=== PATIENT | female | born 1960 | race Caucasian/White ===

== ENCOUNTER → 2024-01-30 13:36 | Outpatient (REF) | payer BC, SELFPAY | LOC: RCS 13:36 | PROVIDERS: ATTENDING PHYSICIAN Nurse Practitioner | DX: R00.2 Palpitations (principal) | CPT/HCPCS: 93017; 93306 ==

== ENCOUNTER → 2024-02-25 08:25 | Outpatient (REF) | payer BC, SELFPAY | LOC: RCS 08:25 | PROVIDERS: ATTENDING PHYSICIAN Internal Medicine; FAMILY PHYSICIAN Nurse Practitioner | DX: R00.2 Palpitations (principal) | CPT/HCPCS: 93225; 93226 ==

== ENCOUNTER → 2024-05-01 10:36 | Outpatient (REF) | payer BC, SELFPAY | LOC: HWWDC 10:36 | PROVIDERS: ATTENDING PHYSICIAN Nurse Practitioner | DX: Z12.31 Encounter for screening mammogram for malignant neoplasm of breast (principal) | CPT/HCPCS: 77063; 77067 ==

== ENCOUNTER → 2024-10-16 10:53 | Outpatient (REF) | payer BC, SELFPAY | LOC: HWRAD 10:53 | PROVIDERS: ATTENDING PHYSICIAN Family Medicine | DX: M54.6 Pain in thoracic spine (principal) | CPT/HCPCS: 71046; 72072 ==

== ENCOUNTER 2025-05-05 13:28 | Emergency (ER) | payer BC, SELFPAY ==
[2025-05-05 13:32] VITALS: BP 147/79
[2025-05-05 14:03] LABS: Hematocrit 40.1 % (37.0-47.0); Hemoglobin 13.2 g/dL (12.0-16.0); Mean Corp Hgb Conc. 32.9 g/dL (33.0-37.0); Mean Corpuscular Volume 88.3 fL (81.0-99.0); Nucleated Red Blood Cells % 0 %; Platelet Count 263 10^3/uL (130-400); Red Cell Dist. Width 12.9 % (11.5-14.5)
[2025-05-05 14:09] LABS: ALT (SGPT) 20 U/L (0-35); AST (SGOT) 21 U/L (14-36); Albumin 4.6 g/dl (3.5-5.0); Alkaline Phosphatase 124 U/L (38-126); Blood Urea Nitrogen 14 mg/dl (7-17); Calcium 8.9 mg/dl (8.4-10.2); Carbon Dioxide 27 mmol/L (22-30); Chloride 108 mmol/L (98-107); Glucose 96 mg/dl (70-99); Lipase 119 U/L (23-300); Potassium 4.0 mmol/L (3.5-5.1); Sodium 140 mmol/L (135-145); Total Protein 7.0 g/dl (6.3-8.2); eGFR > 60.00
[2025-05-05 14:20] LABS: Troponin I < 0.012 ng/ml
--- NOTE | 2025-05-05 15:42 | ED.GENMED ---
History of Present Illness
General
Chief Complaint: Chest Pain
Source: patient
Exam Limitations: none
Time Seen by Provider: 05/05/25 15:42
History of Present Illness
History of Present Illness:
64-year-old female 2+ days of an indigestion feeling in her midsternal area. This morning there was some radiation to the left upper back. Nonpleuritic. They has been continuous all day. Continuous most of yesterday. She doubled up on her PPI 3
days ago with no improvement. She exercises and walks significantly at work without issues even during this discomfort. Symptoms are mild but ongoing at this time.
Past History
Past History
ED Past Medical History: HTN, Hypercholesterolemia, Seizures and Other (Pulmonary emboli and DVT after knee surgery)
ED Past Surgical History: , Gynecological (D&C) and Orthopedic (left knee repair)
Patient has exhibited threatening behavior?: No
PSI?: No
Social History
Tobacco: Non-smoker
Alcohol: Occasional
Drug: None
Personal:
Living: with family
Family History
Family History: Diabetes and Cancer
Review of Systems
Review of Systems
All Other Systems: Not applicable
Constitutional: Denies fever
Respiratory: Reports no symptoms
Cardiac: Reports no symptoms
Phy Exam
Physical Exam
Physical Exam:
GENERAL: Alert and oriented in no apparent distress
EYE: Orbits normal.
NECK: Supple, no thyroid palpable
ENT: Pharynx without erythema
CARDIAC: Regular rate and rhythm without any obvious murmurs.
LUNGS: Clear breath sounds,normal
ABDOMEN: Soft, without focal tenderness or distention
NEUROLOGICAL: Alert and oriented , grossly non-focal
SKIN: Warm and dry, no rash or lesion, no discoloration, skin intact.
MUSCULOSKELETAL: No edema,no deformity.Good color
PSYCH: Normal and appropriate interaction.
Scores
Heart Score for Chest Pain Patients
STEMI patient?: No
History: Slightly or Non-Suspicious
ECG: Normal
Age: >45 - <65 years
Risk Factors: 1 or 2 Risk Factors
Troponin: </= Normal Limit
Heart Score for Chest Pain Patients: 2
Heart Score Risk: 2.5% MACE over next 6 weeks
Course
Orders/Labs/Results
Orders:
Orders
05/05/25 13:29
Electrocardiogram (*1) Urgent
Reason for Study: Chest Pain
EKG- Treatment ONCE
05/05/25 13:39
Complete Blood Count/With Diff Urgent
Comprehensive Metabolic Panel Urgent
Lipase Urgent
Troponin I Urgent
05/05/25 15:53
CT Chest Angio W/wo Iv Contras Urgent
Comment:
Reason For Exam: Chest pain radiating to the upper back
IV Insert/Care/Rem.- Treatment PRN
0.9% Sodium Chloride 500 ml [Nss] 500 ml IV BOLUS
05/05/25 15:54
EKG- Treatment ONCE
05/05/25 16:45
Electrocardiogram (*1) Stat
Reason for Study: Other
Other Reason for Exam: chest pain
Troponin I Urgent
05/05/25 16:56
Add On- LAB Urgent
Tests Added?: dilantin level
05/05/25 17:38
Dilantin Urgent
Comment: NEEDS TO BE COLLECTED
Abnormal Lab Results
05/05/25 05/05/25
13:39 17:38
MCHC 32.9 L g/dL
(33.0-37.0)
Chloride 108 H mmol/L
(98-107)
Phenytoin 6.6 L ug/ml
(10-20)
05/05/25 13:39
05/05/25 13:39
Vital Signs
Initial and Last Documented VS:
Initial Vital Signs
Temp Pulse Resp BP Pulse Ox
98.5 F 69 16 147/79 98
05/05/25 13:32 05/05/25 13:32 05/05/25 13:32 05/05/25 13:32 05/05/25 13:32
Last Documented Vital Signs
Temp Pulse Resp BP Pulse Ox
98.5 F 53 15 147/79 98
05/05/25 13:32 05/05/25 16:45 05/05/25 16:45 05/05/25 13:32 05/05/25 17:00
MDM/Problems Addressed
Differential Diagnosis Includes:
Patient with continual symptoms throughout the day today with a stable EKG repeat EKG is stable and 2 negative troponins. Patient also walks and exercises significantly at work and even with these episodes has had no issues at work. Because the
pain radiates to her upper back dissection needs to be ruled out although unlikely. Highly doubt PE. Her diagnosis of reflux is the likely diagnosis of all this testing is negative. Clinically not gallbladder. If testing is negative we will
continue the PPI twice a day add a H2 malgorzata and follow-up.
*Pulse Oximetry
SaO2: 98
Oxygen Mode of Delivery: Room air
Patient hypoxic: no
*EKG
Interpreted by ED Provider?: Yes
Interpretation: abnormal
Comparison EKG: no changes
Heart Rate: 74
Rate: normal
Rhythm: sinus
Ferriday: normal axis
Interval: normal interval
QRS Pattern: normal QRS
Ischemia: non-specific ST changes
*Critical Care Note
Total Time (30-74mins, 75-104mins- exclusive of procedures): Not Applicable
Data Reviewed
Review of Other/Old Records Reveals: Labs, Records and Testing
Update Note
Update Note:
Patient has remained medically stable and nontoxic. CT angiography negative for dissection or PE. There is nodules. Copy of CT report given to patient to follow-up the nodules. Highly doubt cardiac etiology ongoing symptoms consistent about 12
hours with 2 negative troponins and EKGs. For completeness and because of risk factors will follow-up with cardiology. Also recommended GI follow-up and may need an endoscopy done at some point.
ED Attending Note
-
Portions of this chart may have been created with voice recognition software.� Occasional wrong word or��sound alike� substitutions may have occurred due to the inherent limitations of voice recognition software.
Discharge Plan
Departure
Patient Disposition: Home (Routine Discharge)
Date of Disposition: 05/05/25
Time of Disposition: 19:41
Patient with high blood pressure during this ER visit?: Yes
Discharge Problem:
Anterior chest pain, Suspect esophagitis, Pulmonary nodules
Instructions: Multiple pulmonary nodules, Chest Pain CBC Follow Up, BLOOD PRESSURE
Prescriptions:
No Action
phenytoin sodium extended [Dilantin Extended] 100 MG capsule
400 mg PO DAILY
omeprazole 40 mg Capsule,Delayed Release(Dr/Ec)
40 mg PO DAILY
aspirin 81 mg Tablet,Delayed Release (Dr/Ec)
81 mg PO HS
amlodipine 10 mg Tablet
10 mg PO HS
cetirizine [Zyrtec] 10 mg Tablet
10 mg PO DAILY PRN (Reason: allergies)
cyanocobalamin (vitamin B-12) 1,000 mcg Tablet
1,000 mcg PO QPM
ascorbic acid (vitamin C) [Vitamin C] 500 mg Tablet
500 mg PO QPM
fluticasone propionate 50 mcg/actuation D Hanis,Suspension
1 spray INTRANASAL DAILYPRN PRN (Reason: allergies)
cholecalciferol (vitamin D3) [Vitamin D3] 25 mcg (1,000 unit) Tablet
25 mcg PO QPM
pravastatin 80 mg tablet
40 mg PO HS
Patient Comments:
08/28/22--as per patient and pcp patient instructed to cut these half
pravastatin 40 mg Tablet
40 mg PO HS Qty: 0 0RF
Dificid 200 mg Tablet
200 mg PO BID Qty: 0 0RF
Saccharomyces boulardii 250 mg Capsule
250 mg PO BID Qty: 0 0RF
Referrals:
Fransico Cameron MD [Active, Gastroenterology] - Next open appointment
Hitesh David CRNP [Family Provider] - Follow up in 2-3 days
Activity Restrictions/Additional Instructions:
Follow-up closely with cardiology
Take your omeprazole twice a day for the next 2 weeks. You can also add Pepcid
Also recommend GI follow-up. I did give you the name of the drawstring knotter that phone call
Make sure you follow-up the pulmonary nodules
Interventions
Interventions:
*Risk Screen - Suicide Last Done: 05/05/25 15:46
*Neglect/Abuse Screening Last Done: 05/05/25 15:46
*ED- Fall Risk Assessment Last Done: 05/05/25 16:06
ED- Cardiac Assessment Last Done: 05/05/25 15:46
Discharge Date and Time
Print Language: HEBREW
[2025-05-05 15:45] VITALS: BMI 32.0
[2025-05-05] MEDS: NSS 500 IV (16:05)
[2025-05-05 17:22] LABS: Troponin I < 0.012 ng/ml
[2025-05-05 19:50] VITALS: BP 128/78
== END 2025-05-05 20:09 | disposition home or self-care (01) ==
LOC: EMR 13:28
PROVIDERS: Emergency Medicine; EMERGENCY PHYSICIAN Emergency Medicine
DX: R07.89 Other chest pain (principal); I10 Essential (primary) hypertension; E78.00 Pure hypercholesterolemia, unspecified; Z86.711 Personal history of pulmonary embolism; Z86.718 Personal history of other venous thrombosis and embolism
CPT/HCPCS: 99284; 71275; 80053; 80185; 83690; 84484; 85025; 93005; Q9967

== ENCOUNTER → 2025-06-22 07:46 | Outpatient (REF) | payer BC, SELFPAY | LOC: HWWDC 07:46 | DX: Z78.0 Asymptomatic menopausal state (principal); Z12.31 Encounter for screening mammogram for malignant neoplasm of breast | CPT/HCPCS: 77063; 77067; 77080 ==

== ENCOUNTER → 2025-07-30 07:38 | Outpatient (REF) | payer BC, SELFPAY | LOC: HWRAD 07:38 | PROVIDERS: ATTENDING PHYSICIAN Internal Medicine Critical Care Medicine | DX: R91.8 Other nonspecific abnormal finding of lung field (principal) | CPT/HCPCS: 71250 ==

== ENCOUNTER → 2025-08-17 13:27 | Outpatient (REF) | payer BC, SELFPAY | LOC: DHSLP 13:27 | PROVIDERS: ATTENDING PHYSICIAN Internal Medicine Critical Care Medicine | DX: G47.33 Obstructive sleep apnea (adult) (pediatric) (principal) | CPT/HCPCS: 95800 ==